=== PATIENT | female | born 1995 | race Hispanic/Latino ===

== ENCOUNTER 2019-05-22 12:29 | Emergency (ER) | payer SELFPAY ==
[~2019-05-22] VITALS: Ht 147.3 cm; Wt 43.3 kg
[2019-05-22] MEDS ORDERED: HYDROCODONE/APAP 5MG-325MG TAB PO NR (13:00)
[2019-05-22] MEDS ORDERED: KETOROLAC TROMETHAMINE 10 MG TAB PO NR (13:00)
--- NOTE | 2019-05-22 13:56 | Diagnostic Imaging Report ---
Frontal and lateral views of the chest. HISTORY: Chest pain, shortness of breath COMPARISON: None available. DISCUSSION: Lungs: The lungs are well inflated. No evidence of a consolidative pneumonia or pulmonary alveolar edema. Pleura: No pleural effusion or pneumothorax. Heart and mediastinum: The cardiomediastinal silhouette appear(s) unremarkable. Bones and soft tissues: Appear unremarkable. IMPRESSION: No acute radiographic abnormality. Signed by: Dr. Norris Rios D.O., M.M.M. on 05/22/2019 1:53 PM
== END 2019-05-22 14:30 | disposition home or self-care (01) ==
LOC: ER 12:29
DX: R07.89 Other chest pain (principal)
CPT/HCPCS: 71046; 93041; 99283